=== PATIENT | male | born 1995 | race Caucasian/White ===

== ENCOUNTER 2017-01-03 22:38 | Emergency (ER) | payer SELFPAY ==
--- NOTE | 2017-01-03 23:32 | EDM.PDOC ---
ED HPI GI/ABDOMINAL - General Chief Complaint: Abdominal Pain Stated Complaint: abdominal pain Time Seen by Provider: 01/03/17 22:41 Source of Information: Reports: Patient, RN, RN notes reviewed History Limitations: Reports: No limitations - History of Present Illness INITIAL COMMENTS - FREE TEXT/NARRATIVE: Patient presents to the ED at [facility] with a 2 week history of RUQ pain. The pain has been colicky in nature. Patient was seen at another facility 2 weeks ago and had an ultrasound of the abdomen which did not show any acute pathology. Patient denies any diarrhea, vomiting, or nausea. No recent abdominal surgeries. No recent abdominal trauma. Symptom Onset Date: 12/23/16 Timing/Duration: Reports: Waxing/waning Location: RUQ Quality: Reports: cramping Severity: mild Improves with: Reports: lying down Worsens with: Reports: palpation, sitting up Context: Denies: sick contact, bad/questionable food, out of country travel, recent surgery, recent trauma, lifting, activity/exercise Associated Symptoms: Reports: denies other symptoms - Related Data Allergies/ADRs: Allergies Allergy/AdvReac Type Severity Reaction Status Date / Time Penicillins Allergy Rash Verified 01/04/17 00:13 Home Meds: Home Meds . [No Known Home Meds] 01/04/17 [History] ED ROS GENERAL - Review of Systems Review Of Systems: See Below Constitutional: Denies: fever, chills, weakness Respiratory: Denies: shortness of breath, cough Cardiovascular: Denies: Chest pain, Palpitations GI/Abdominal: Reports: Abdominal pain. Denies: Black stool, Bloody stool, Diarrhea, Nausea, Vomiting Skin: Reports: no symptoms Neurological: Reports: no symptoms. Denies: dizziness, headache ED EXAM, GI/ABD - Physical Exam Exam: See Below Exam Limited By: No limitations General Appearance: alert, no apparent distress Respiratory/Chest: no respiratory distress, lungs clear, normal breath sounds Cardiovascular: regular rate, rhythm GI/Abdominal: normal bowel sounds, soft, no distention, tenderness (RUQ [very mild]) Neurological: alert, oriented Skin Exam: Warm, Dry, Intact, Normal color, No rash Course - Vital Signs Last Recorded V/S: Last Vital Signs Temp 37.2 C 01/03/17 23:30 Pulse 71 01/03/17 23:30 Resp 16 01/03/17 23:30 BP 187/78 H 01/03/17 23:30 Pulse Ox 97 01/03/17 23:30 - Orders/Labs/Meds Orders: Active Orders 24 hr Category Date Time Status Abdomen 2V AP Flat Upright [CR] Stat Exams 01/03/17 23:37 Taken Labs: Laboratory Tests 01/03/17 01/03/17 01/04/17 Range/Units 23:52 23:52 00:00 WBC 12.4 H (4.0-10.0) x10^3/uL RBC 4.72 (4.5-6.0) x10^6/uL Hgb 15.6 (14.0-18.0) g/dL Hct 44.3 (40.0-52.0) % MCV 93.9 H (78.0-93.0) fL MCH 33.1 H (26.0-32.0) pg MCHC 35.2 (32.0-36.0) g/dL RDW Coeff of Sandi 12.8 (10.0-15.0) % Plt Count 276 (130-400) x10^3/uL Add Manual Diff Yes Neutrophils % (Manual) 70 (50-80) % Lymphocytes % (Manual) 20 L (25-50) % Monocytes % (Manual) 9 (2-11) % Eosinophils % (Manual) 1 (0-4) % Platelet Estimate Adequate Macrocytosis 1+ slight H Sodium 143 (136-145) mmol/L Potassium 4.4 (3.5-5.1) mmol/L Chloride 105 (98-107) mmol/L Carbon Dioxide 31 (21-32) mmol/L BUN 12 (7-18) mg/dL Creatinine 1.1 (0.70-1.30) mg/dL Est Cr Clr Drug Dosing 107.12 mL/min Estimated GFR (MDRD) > 60 Glucose 88 (74-106) mg/dL Calcium 9.0 (8.5-10.1) mg/dL Amylase 51 (25-115) U/L Lipase 138 (73-393) U/L Urine Color Yellow (YELLOW) Urine Appearance Slightly cloudy H (CLEAR) Urine pH 7.0 (5.0-8.0) Ur Specific [place] 1.020 Urine Protein Negative (NEGATIVE) mg/dL Urine Glucose (UA) Negative (NEGATIVE) mg/dL Urine Ketones Negative (NEGATIVE) mg/dL Urine Occult Blood Negative (NEGATIVE) Urine Nitrite Negative (NEGATIVE) Urine Bilirubin Negative (NEGATIVE) Urine Urobilinogen 1.0 (0.2) EU/dL Ur Leukocyte Esterase Negative (NEGATIVE) Urine RBC 0-5 (NOT SEEN) /HPF Urine WBC 0-5 (NOT SEEN) /HPF Ur Squamous Epith Cells Rare (NEGATIVE) /HPF Amorphous Sediment Moderate Urine Bacteria Not seen (NEGATIVE) /HPF Urine Mucus Rare H (NEGATIVE) /LPF Departure - Departure Time of Disposition: 00:22 Disposition: Home, Self-Care 01 Condition: good Clinical Impression: Abdominal pain in male Instructions: Abdominal Pain, Adult, [id number] Forms: ED Department Discharge Additional Instructions: 1. Stay well hydrated and rest 2. Increase fiber intake; more fruits/veggies 3. All blood work was normal 4. Xray shows a build up of stool where you are having pain at 5. Establish care with a Primary care provider for any follow up - Problem List Review Problem List Initiated/Reviewed/Updated: Yes - My Orders Last 24 Hours: My Active Orders 01/03/17 23:37 Abdomen 2V AP Flat Upright [CR] Stat - Assessment/Plan Last 24 Hours: My Active Orders 01/03/17 23:37 Abdomen 2V AP Flat Upright [CR] Stat
[2017-01-04 00:12] VITALS: BP 187/78
[2017-01-04 00:14] LABS: CHLORIDE,CL 105 mmol/L (98-107); SODIUM,NA 143 mmol/L (136-145)
== END 2017-01-04 00:33 | disposition home or self-care (01) ==
LOC: VM.ED 22:38
DX: R10.11 Right upper quadrant pain (principal); Z88.0 Allergy status to penicillin
CPT/HCPCS: 36415; 74020; 80048; 81001; 82150; 83690; 85025; 99282-GF; 99284